=== PATIENT | female | born 1990 | race Caucasian/White ===

== ENCOUNTER → 2017-03-31 | Outpatient (CLI) | payer BC ==
[~2017-03-31] MED LIST: OMEG10007 PO; PRENTAB26 PO
== END | disposition home or self-care (01) ==
LOC: C.PAPS 14:21
PROVIDERS: ATTEND Obstetrics & Gynecology
DX: Z01.419 Encounter for gynecological examination (general) (routine) without abnormal findings (principal)

== ENCOUNTER 2018-12-28 17:30 | Inpatient (IN) ==
[2018-12-28] MEDS ORDERED: LACTATED RINGER'S 1,000 ML IV PRN ×3 (18:27→22:15)
[2018-12-28] MEDS ORDERED: LACTATED RINGER'S 1,000 ML IV SCH (18:30)
[2018-12-28 19:07] LABS: Hematocrit (blood only) 35.7 % (37-47); Hemoglobin 12.3 g/dL (12.0-16.0); Mean Corpuscular Volume 92.5 fL (80-100); Mean Platelet Volume 11.1 fL (7.4-10.4); Platelet Count 248 K/uL (130-400); RDW Coefficient of Variation 13.5 % (11.5-14.5); RDW Standard Deviation 45.2 fL (36.4-46.3); Red Blood Count 3.86 M/uL (4.2-5.4); White Blood Count 13.91 K/uL (4.8-10.8)
[2018-12-28 19:26] LABS: Mean Corpuscular Hgb Conc 34.5 g/dL (32-36)
[2018-12-28] MEDS ORDERED: BUPIVACAINE 0.25% 30 ML VIAL ONE ×2 (20:29→23:46)
[2018-12-28] MEDS ORDERED: ePHEDrine sulfate 50 MG/ML AMP ONE (20:29)
[2018-12-28] MEDS ORDERED: fentaNYL citrate 100 MCG/2 ML VIAL ONE (20:29)
[2018-12-28] MEDS ORDERED: fentaNYL 2MCG/ML ROPIV 1.25MG/ML 100 ML BAG EPI ONE (20:30)
--- NOTE | 2018-12-28 21:21 | Anesthesiology Consultation ---
Date of Service December 28, 2018 Assessment & Plan Chart Review Chart Review: Patient NOT seen in Pre Admission Testing and Acceptable Risk for Labor Epidural Consults Requested none ASA ASA2 Proposed Anesthesia Anesthesia Type: Labor Epidural Risk / Benefits Reviewed With: PT / POA / Parent / Guardian, Accepts Plan and Informed Consent Obtained NPO Date Last Intake of Fluids: 12/28/18 Time Last Intake of Fluids: 18:30 Date Last Intake of Solids: 12/28/18 Time Last Intake of Solids: 17:00 History Height/Weight Height: 1.63 m Weight: 111.13 kg Allergies Allergy/AdvReac Type Severity Reaction Status Date / Time No Known Allergies Allergy Unverified 01/15/16 20:30 Medications Home Medications Medication Instructions Recorded Confirmed Last Taken Multivit/Min/Iron/Fol Ac/Pren 1 tab PO DAILY #0 tab 01/15/16 12/28/18 12/28/18 08:00 ( Vitamin) Active Medications Generic Name Dose Route Start Last Admin Trade Name Freq PRN Reason Stop Dose Admin Lactated Ringer's 1,000 mls @ 999 mls/hr 12/28/18 18:27 12/28/18 20:21 Lr IV 01/27/19 18:26 999 mls/hr .Q1H1M PRN Administration (Pre-Anesthesia) Past Medical History Medical History GERD (gastroesophageal reflux disease) Past Anesthesia History No Family Hx of Anesthesia Complications No h/o previous anesthesia except for epidural History of PONV No (No h/o anesthesia) Motion Sickness Screening History of Motion Sickness: No Social History Smoking Status: Never smoker Do You Dip or Chew Tobacco: No Hx Alcohol Use: No Hx Substance Use: No Exercise / Class Metabolic Activity II 4-5 Yardwork/Stairs/Walk up hill Physical Exam Vital Signs Last Vital Signs Temp 36.7 C 12/28/18 19:29 Pulse 93 H 12/28/18 19:28 Resp 18 12/28/18 19:29 BP 129/67 12/28/18 19:28 Constitutional + obese ENMT Mouth: no TMJ abnormality and no TMJ clicking Thyromental Distance: > or= 3.5 Finger Breadths Mallampati Class: II Neck normal visual inspection; neck extension not limited Respiratory Auscultation: lungs clear to auscultation bilaterally Cardiovascular Rate/Rhythm: regular rate and regular rhythm Psychiatric Orientation: alert and oriented x 3 Testing Laboratory Results 12/28/18 18:40
[2018-12-28] MEDS ORDERED: NALOXONE HCL 1 MG in SODIUM CHLORIDE 0.9% 1000ML 1,000 ML IV PRN (22:09)
[2018-12-28] MEDS ORDERED: PROMETHAZINE HCL 12.5 MG in SODIUM CHLORIDE 0.9% 50 ML IV PRN (22:09)
[2018-12-28] MEDS ORDERED: ONDANSETRON INJ 2 MG/ML 2 ML VIAL IV PRN (22:09)
[2018-12-28] MEDS ORDERED: NALBUPHINE HCL INJ 10 MG/ML AMP IV PRN (22:09)
[2018-12-28] MEDS ORDERED: NALOXONE HCL 0.4 MG/1 ML VIAL/CARP IV PRN (22:09)
[2018-12-28] MEDS ORDERED: DiphenhydrAMINE HCL 50 MG/ML VIAL IV PRN (22:09)
[2018-12-28] MEDS ORDERED: ePHEDrine sulfate 50 MG/ML AMP IV PRN (22:09)
[2018-12-28] MEDS ORDERED: fentaNYL 2MCG/ML ROPIV 1.25MG/ML 100 ML BAG EPI PRN (22:09)
[2018-12-28] MEDS ORDERED: OXYTOCIN 30 UNITS/500 ML BAG IV PRN (22:15)
[2018-12-29] MEDS ORDERED: HYDROCORTISONE ACETATE 25 MG SUPP PR PRN (00:21)
[2018-12-29] MEDS ORDERED: ACETAMINOPHEN 325 MG TAB PO PRN (00:21)
[2018-12-29] MEDS ORDERED: SUPERCREAM 0.870% 15 GM JAR EXT PRN (00:21)
[2018-12-29] MEDS ORDERED: IBUPROFEN 600 MG TAB PO PRN (00:21)
[2018-12-29] MEDS ORDERED: ACETAMINOPHEN W/CODEINE #3 1 TAB PO PRN (00:21)
[2018-12-29] MEDS ORDERED: OXYCODONE/ACETAMINOPHEN 5mg/325mg TAB PO PRN (00:21)
[2018-12-29] MEDS ORDERED: OXYTOCIN 30 UNITS/500 ML BAG IV PRN (00:21)
--- NOTE | 2018-12-29 00:44 | Anesthesia Procedure Note ---
Date of Service December 29, 2018 Anesthesia Post Epidural Note Vital Signs Vital Signs: Temp Pulse Resp BP Pulse Ox 36.8 C 104 H 18 116/61 95 12/28/18 22:24 12/29/18 00:38 12/28/18 23:30 12/29/18 00:31 12/29/18 00:38 Notes Mental Status: alert / awake / arousable Patient Amnestic to Procedure: No Nausea / Vomiting: adequately controlled Pain: adequately controlled Airway Patency, RR, SpO2: stable & adequate BP & HR: stable & adequate Hydration State: stable & adequate Neuraxial Anesthesia: was administered and sensory block is resolving Anesthetic Complications: no major complications apparent and Pt Satisfied with anesthetic care Epidural: Removed without complications and With tip intact
[2018-12-29] MEDS: BENZOCAINE 20% AER SPR 82.5 GM CAN EXT PRN ×2 (02:48→03:39)
--- NOTE | 2018-12-29 09:15 | Operative Report ---
DATE OF OPERATION: 12/29/2018 The patient is 2, para 2, blood type is A positive, group B strep negative. Due date is 12/24/2018, was scheduled for induction of labor, came in several hours before she was scheduled to come in and in spontaneous labor. At time of admission, she was about 4 cm. She labored spontaneously on her own. She eventually requested and received epidural. She obtained good pain relief. After the epidural was placed, membranes were ruptured surgically. Fluid was clear. She had a spontaneous unstimulated labor, went to full dilatation with about 3 pushes, pushed out a live female infant via direct occiput anterior position over an intact perineum. There was a tight nuchal cord that had to be clamped and cut. Shoulders then delivered without difficulty. Infant was suctioned through the mouth and the nose, placed on the mother's abdomen. Cord blood was taken. With IV Pitocin running, the placenta was removed intact. Inspection of the perineum revealed a first-degree laceration. This was repaired first by injecting local and then repairing the vaginal mucosa out and to beyond the hymenal ring using a deep suture to approximate the bulbocavernosus muscle and then a running subcuticular suture to approximate the perineal skin edges. Following this, hemostasis was good. Estimated blood loss 200 mL. Apgars were estimated 8 and 9. I attest to the content of the Intraoperative Record and any orders documented therein. Any exception s are noted below.
[2018-12-29] MEDS: DOCUSATE SODIUM 100 MG CAP PO SCH ×2 (09:33→20:14)
[2018-12-29] MEDS: PRENATAL VITAMIN 1 TAB PO SCH (09:33)
[2018-12-29] MEDS: FERROUS SULFATE 325 MG TAB PO SCH (09:33)
[2018-12-29] MEDS ORDERED: BISACODYL 5 MG TABEC PO SCH (20:00)
[2018-12-30] MEDS ORDERED: BISACODYL 10 MG SUPP PR PRN (06:00)
[2018-12-30 06:44] LABS: Hematocrit (blood only) 32.3 % (37-47); Hemoglobin 11.1 g/dL (12.0-16.0); Mean Corpuscular Hgb Conc 34.4 g/dL (32-36); Mean Corpuscular Volume 93.4 fL (80-100); Platelet Count 192 K/uL (130-400); RDW Coefficient of Variation 13.8 % (11.5-14.5); RDW Standard Deviation 47.2 fL (36.4-46.3); Red Blood Count 3.46 M/uL (4.2-5.4); White Blood Count 9.54 K/uL (4.8-10.8)
--- NOTE | 2018-12-30 08:53 | Obstetrical Progress Note ---
Date of Service December 30, 2018 Results & Data Vital Signs (Past 12 Hours) Vital Signs Temp Pulse Resp BP Pulse Ox 12/29/18 23:00 37.0 C 78 18 113/74 98
--- NOTE | 2018-12-30 08:59 | Obstetrical Progress Note ---
Date of Service December 30, 2018 Results & Data Vital Signs (Past 12 Hours) Vital Signs abdomen soft and non tender vaginal bleeding scant to moderate ambulating well no calf tenderness Temp Pulse Resp BP Pulse Ox 12/29/18 23:00 37.0 C 78 18 113/74 98
[2018-12-30] MEDS ORDERED: DIPHTHERIA/TETANUS/PERTUSSIS 0.5 ML SYR/VIAL IM ONE (09:00)
[2018-12-30] MEDS: PRENATAL VITAMIN 1 TAB PO SCH (09:08)
[2018-12-30] MEDS: FERROUS SULFATE 325 MG TAB PO SCH (09:08)
[2018-12-30] MEDS: DOCUSATE SODIUM 100 MG CAP PO SCH (09:08)
[2018-12-30] MEDS ORDERED: MEASLES, MUMPS & RUBELLA VIRUS VIAL SQ ONE ×2 (09:45→12:09)
--- OUTSIDE RECORDS SUMMARY | 2019-01-03 17:52 | External Medical Summary | Continuity of Care Document ---
:1990 Author Name Iona Higuera, Provider Address Unavailable Unavailable , Care Team Providers Name Role Phone Unavailable Unavailable Unavailable PCP, UNKNOWN Unavailable Unavailable Problems Active medical history not documented Allergies and Adverse Reactions Allergy history not documented Medications Medications not documented Procedures Procedures not documented Immunizations Immunizations not documented Plan of Treatment Planned Observations Planned Goals not documented Results No Known Results Results not documented
== END 2018-12-30 15:21 | disposition home or self-care (01) | DRG 807 ==
LOC: EDSTATUS 17:30 → OPB 17:30 → 4S1 17:31 → 4S2 12-29 03:10

== ENCOUNTER 2021-10-20 13:07 | Inpatient (IN) ==
[2021-10-20] MEDS ORDERED: OXYTOCIN 30 UNITS/500 ML BAG IV PRN (20:16)
[2021-10-20] MEDS ORDERED: miSOPROStoL 50 MCG TAB PO ONE (20:28)
[2021-10-20 20:47] LABS: Hematocrit (blood only) 29.2 % (37-47); Hemoglobin 9.6 g/dL (12.0-16.0); Mean Corpuscular Hemoglobin 29.2 pg (25-34); Mean Corpuscular Hgb Conc 32.9 g/dL (32-36); Mean Corpuscular Volume 88.8 fL (80-100); Mean Platelet Volume 11.4 fL (7.4-10.4); Platelet Count 257 K/uL (130-400); RDW Coefficient of Variation 14.2 % (11.5-14.5); RDW Standard Deviation 46.3 fL (36.4-46.3); Red Blood Count 3.29 M/uL (4.2-5.4); White Blood Count 9.52 K/uL (4.8-10.8)
[2021-10-20] MEDS ORDERED: PENICILLIN G POTASSIUM 6 MU in DEXTROSE 5% 250 ML IV PRN (20:47)
[2021-10-21] MEDS ORDERED: miSOPROStoL 50 MCG TAB ONE (01:37)
[2021-10-21] MEDS: miSOPROStoL 50 MCG TAB PO SCH ×3 (05:22→10:39)
[2021-10-21] MEDS: LACTATED RINGER'S 1,000 ML IV PRN ×3 (07:08→18:04)
[2021-10-21] MEDS ORDERED: miSOPROStoL 50 MCG TAB PO ONE (07:58)
[2021-10-21] MEDS: PENICILLIN G POTASSIUM 3 MU in DEXTROSE 5% 100 ML IV PRN ×2 (11:25→16:50)
[2021-10-21] MEDS ORDERED: OXYTOCIN 30 UNITS/500 ML BAG IV PRN ×2 (14:07→21:12)
[2021-10-21] MEDS ORDERED: fentaNYL citrate 100 MCG/2 ML VIAL ONE (15:18)
[2021-10-21] MEDS ORDERED: fentaNYL 2MCG/ML ROPIVACAINE 1.25MG/ML 100 ML BAG EPI ONE (15:18)
[2021-10-21] MEDS ORDERED: BUPIVACAINE 0.25% 30 ML VIAL ONE (15:18)
[2021-10-21] MEDS ORDERED: SODIUM CHLORIDE 0.9% INJ 10 ML VIAL ONE (15:18)
[2021-10-21] MEDS ORDERED: ePHEDrine sulfate 50 MG/ML AMP ONE (15:18)
--- NOTE | 2021-10-21 16:12 | Anesthesiology Consultation ---
Date of Service October 21, 2021 Assessment & Plan Chart Review Chart Review: Patient NOT seen in Pre Admission Testing and Acceptable Risk for Labor Epidural Consults Requested none ASA ASA2 Proposed Anesthesia Anesthesia Type: Labor Epidural and CSE Risk / Benefits Reviewed With: PT / POA / Parent / Guardian, Accepts Plan and Informed Consent Obtained History Height/Weight Height: 5 ft 4 in Weight: 117.934 kg Allergies Allergy/AdvReac Type Severity Reaction Status Date / Time No Known Allergies Allergy Verified 10/20/21 19:23 Medications Home Medications Medication Instructions Recorded Confirmed Last Taken vit no.95-ferrous 1 tab PO DAILY 12/25/20 10/20/21 10/20/21 08:00 fumarate 28 mg-folic acid 800 mcg tablet () Active Medications Generic Name Dose Route Start Last Admin Trade Name Freq PRN Reason Stop Dose Admin Lactated Ringer's 1,000 mls @ 125 mls/hr 10/20/21 20:16 10/21/21 15:40 Lr IV 10/22/21 20:15 999 mls/hr .Q8H PRN Administration L&D Protocol Protocol Penicillin G Potassium 3 mu/ 106 mls @ 100 mls/hr 10/20/21 20:45 10/21/21 12:37 Dextrose IV 10/30/21 20:44 Infused Q4H PRN Infusion active labor Protocol Penicillin G Potassium 6 mu/ 262 mls @ 250 mls/hr 10/20/21 20:47 10/21/21 09:01 Dextrose IV 10/21/21 20:46 Infused ONCE PRN Infusion active labor Protocol Misoprostol 50 mcg 10/21/21 01:30 10/21/21 10:39 Misoprostol 50 Mcg Tab PO 11/20/21 01:29 Not Given Q4H SJ NPO Date Last Intake of Fluids: 10/21/21 Time Last Intake of Fluids: 15:00 Date Last Intake of Solids: 10/21/21 Time Last Intake of Solids: 07:00 Past Medical History Medical History GERD (gastroesophageal reflux disease) Exercise / Class Metabolic Activity II 4-5 Yardwork/Stairs/Walk up hill Past Anesthesia History No Hx of Anesthesia Complications and No Family Hx of Anesthesia Complications History of PONV No Hx of PONV and No Hx of Motion Sickness Social History Smoking Status: Never smoker Hx Alcohol Use: No Hx Substance Use: No substance use type: does not use Review of Systems no chest pain or sob Physical Exam Vital Signs Last Vital Signs Temp 36.6 C 10/21/21 13:16 Pulse 98 H 10/21/21 16:07 Resp 20 10/21/21 07:15 BP 136/69 10/21/21 13:42 Pulse Ox 100 10/21/21 16:07 ENMT Mouth: no TMJ abnormality Thyromental Distance: > or= 3.5 Finger Breadths Mallampati Class: II Neck normal visual inspection Respiratory normal respiratory effort Auscultation: lungs clear to auscultation bilaterally Cardiovascular Rate/Rhythm: regular rate and regular rhythm Musculoskeletal Spine: normal cervical ROM Neurologic moves all extremities Psychiatric Orientation: alert and oriented x 3 Testing Laboratory Results 10/20/21 20:33
[2021-10-21] MEDS ORDERED: ePHEDrine sulfate 50 MG/ML AMP IV PRN (16:13)
[2021-10-21] MEDS ORDERED: fentaNYL 2MCG/ML ROPIVACAINE 1.25MG/ML 100 ML BAG EPI PRN (16:13)
[2021-10-21] MEDS ORDERED: NALOXONE HCL 0.4 MG/1 ML VIAL/CARP IV PRN (16:13)
[2021-10-21] MEDS ORDERED: ONDANSETRON INJ 2 MG/ML 2 ML VIAL IV PRN (16:13)
[2021-10-21] MEDS ORDERED: NALOXONE HCL 1 MG in SODIUM CHLORIDE 0.9% 1000ML 1,000 ML IV PRN (16:13)
[2021-10-21] MEDS ORDERED: diphenhydrAMINE 50 MG/ML VIAL IV PRN (16:13)
[2021-10-21] MEDS ORDERED: NALBUPHINE HCL INJ 10 MG/ML AMP IV PRN (16:13)
[2021-10-21] MEDS ORDERED: PENICILLIN G POTASSIUM 6 MU in DEXTROSE 5% 250 ML IV ONE (20:45)
[2021-10-21] MEDS ORDERED: miSOPROStoL 200 MCG TAB ONE (21:06)
[2021-10-21] MEDS ORDERED: ACETAMINOPHEN 325 MG TAB PO PRN (21:12)
[2021-10-21] MEDS ORDERED: BENZOCAINE 20% AER SPR 82.5 GM CAN EXT PRN (21:12)
[2021-10-21] MEDS ORDERED: oxyCODONE/ACETAMINOPHEN 5mg/325mg TAB PO PRN (21:12)
[2021-10-21] MEDS ORDERED: IBUPROFEN 600 MG TAB PO PRN (21:12)
[2021-10-21] MEDS ORDERED: miSOPROStoL 200 MCG TAB PR ONE (21:12)
[2021-10-21] MEDS ORDERED: HYDROCORTISONE ACETATE 25 MG SUPP PR PRN (21:12)
[2021-10-21] MEDS ORDERED: DIPHTHERIA/TETANUS/PERTUSSIS 0.5 ML SYR/VIAL IM ONE (21:12)
[2021-10-21] MEDS ORDERED: bisacodyL 10 MG SUPP PR PRN (21:12)
[2021-10-21] MEDS ORDERED: ACETAMINOPHEN W/CODEINE #3 1 TAB PO PRN (21:12)
[2021-10-22 06:02] LABS: Hematocrit (blood only) 32.3 % (37-47); Hemoglobin 10.3 g/dL (12.0-16.0); Mean Corpuscular Hemoglobin 28.9 pg (25-34); Mean Corpuscular Hgb Conc 31.9 g/dL (32-36); Mean Corpuscular Volume 90.7 fL (80-100); Mean Platelet Volume 11.2 fL (7.4-10.4); Platelet Count 244 K/uL (130-400); RDW Coefficient of Variation 14.2 % (11.5-14.5); RDW Standard Deviation 47.6 fL (36.4-46.3); Red Blood Count 3.56 M/uL (4.2-5.4); White Blood Count 12.45 K/uL (4.8-10.8)
--- NOTE | 2021-10-22 06:17 | Operative Report (OR) ---
DELIVERY NOTE She is a 4, para 3, one spontaneous AB. Blood type A positive, group B strep positive. Had documented several elevated blood pressures in the office and these pressures were eventually control led with decreased activity. She was then admitted for induction at 38 weeks and 5 days. She eventu ally delivered at 38 weeks and 6 days. Induction was done by giving her p.o. Cytotec. She had 3 dos es of p.o. Cytotec. Then her cervix started to open up, it was about 3-4 cm, membranes were rupture d surgically. Fluid was clear. She then labored for a while, then received epidural. She had good pain relief from the epidural and then she was given IV Pitocin. The IV Pitocin was turned up until she got a regular pattern. She went to full dilatation, pushed out a live female via direct o cciput anterior position over an intact perineum. There was a tight nuchal cord, which had to be cla mped and cut prior to delivery of the shoulders. There was some mild to moderate shoulder dystocia, which was managed by steady traction. After the was delivered, infant was suctioned through t he mouth and the nose and given oxygen by the nurses. Cord blood was taken. With IV Pitocin running , placenta was removed intact. Inspection of the perineum revealed a small laceration at about 4 o'c lock on the hymenal edge and this was sewn with a running 3-0 Vicryl. Vaginal exam revealed no hemat yoselin formation or sponges in the vagina. Estimated blood loss was 200 mL and 800 mcg of rectal Cytote c was used to contract the uterus. Uterus contracted nicely. Hemostasis was good. The patient kavita rated the procedure well. Job ID: [id number]
--- NOTE | 2021-10-22 08:07 | Obstetrical Progress Note ---
Date of Service October 22, 2021 Assessment & Plan Admission and Anticipated Discharge Date Admission Date: October 20, 2021 Subjective abdomen soft and non tender no calf tenderness ambulating well vaginal bleeding scant hgb 10.3 Results & Data ([facility]) Vital Signs (Past 12 Hours) Vital Signs Temp Pulse Pulse Resp BP BP Pulse Ox 10/22/21 05:15 36.9 C 101 H 18 138/81 10/22/21 04:25 36.9 C 18 123/86 10/22/21 02:11 36.4 C L 18 133/81 10/22/21 00:21 37.1 C 18 132/82 10/21/21 23:09 36.9 C 106 H 18 119/61 10/21/21 23:07 106 H 98 10/21/21 23:02 106 H 99 10/21/21 22:57 103 H 98 10/21/21 22:52 100 H 97 10/21/21 22:47 103 H 97 10/21/21 22:42 104 H 98 10/21/21 22:37 108 H 98 10/21/21 22:32 106 H 97 10/21/21 22:27 101 H 98 10/21/21 22:22 105 H 97 10/21/21 22:17 109 H 97 10/21/21 22:12 104 H 97 10/21/21 22:07 111 H 98 10/21/21 22:02 107 H 98 10/21/21 21:57 104 H 97 10/21/21 21:52 103 H 97 10/21/21 21:47 108 H 98 10/21/21 21:42 106 H 99 10/21/21 21:41 115 H 117/58 L 10/21/21 21:37 118 H 98 10/21/21 21:32 120 H 99 10/21/21 21:27 107 H 98 10/21/21 21:22 115 H 99 10/21/21 21:17 111 H 98 10/21/21 21:12 118 H 98 10/21/21 21:07 114 H 100 10/21/21 21:02 120 H 97 10/21/21 20:57 122 H 100 10/21/21 20:56 122 H 117/65 10/21/21 20:52 111 H 100 10/21/21 20:47 130 H 98 10/21/21 20:46 115 H 114/56 L 10/21/21 20:42 107 H 99 10/21/21 20:37 106 H 100 10/21/21 20:36 97 H 128/63 10/21/21 20:32 105 H 99 10/21/21 20:27 104 H 99 10/21/21 20:26 96 H 116/55 L 10/21/21 20:22 109 H 98 10/21/21 20:17 123 H 100 10/21/21 20:16 105 H 119/70 10/21/21 20:12 105 H 99
[2021-10-22] MEDS: DOCUSATE SODIUM 100 MG CAP PO SCH ×2 (08:11→19:39)
[2021-10-22] MEDS: PRENATAL VITAMIN 1 TAB PO SCH (08:11)
--- NOTE | 2021-10-22 10:30 | Anesthesia Procedure Note ---
Date of Service October 22, 2021 Anesthesia Post Epidural Note Vital Signs Vital Signs: Temp Pulse Resp BP Pulse Ox 97.9 F 93 H 18 129/76 97 10/22/21 08:15 10/22/21 08:15 10/22/21 08:15 10/22/21 08:15 10/22/21 08:15 Pain Intensity Bilateral Lower Perineal: Pain Intensity: 7 Head: Pain Intensity: 5 Notes Mental Status: alert / awake / arousable and participated in evaluation Nausea / Vomiting: adequately controlled Pain: adequately controlled Airway Patency, RR, SpO2: stable & adequate BP & HR: stable & adequate Hydration State: stable & adequate Neuraxial Anesthesia: was administered and sensory block is resolving Anesthetic Complications: no major complications apparent and Pt Satisfied with anesthetic care Epidural: Removed without complications and With tip intact
[2021-10-22] MEDS ORDERED: bisacodyL 5 MG TABEC PO SCH (20:00)
[2021-10-23 07:26] LABS: Hematocrit (blood only) 31.3 % (37-47); Hemoglobin 9.8 g/dL (12.0-16.0)
[2021-10-23] MEDS: PRENATAL VITAMIN 1 TAB PO SCH (09:12)
[2021-10-23] MEDS: DOCUSATE SODIUM 100 MG CAP PO SCH (09:12)
--- NOTE | 2021-10-23 10:53 | Obstetrical Progress Note ---
Date of Service October 23, 2021 Assessment & Plan Admission and Anticipated Discharge Date Admission Date: October 20, 2021 Subjective abdomen soft and non tender no calf tenderness ambulating well vaginal bleeding scant hgb 9.8 Results & Data ([facility]) Vital Signs (Past 12 Hours) Vital Signs Temp Pulse Resp BP Pulse Ox 10/23/21 08:20 36.7 C 88 18 129/86 98 10/22/21 23:24 36.5 C 87 20 131/82 98
== END 2021-10-23 12:15 | disposition home or self-care (01) | DRG 807 ==
LOC: 4S1 19:04 → UNDODISIN 10-21 13:59 → 4S2 10-21 23:47